=== PATIENT | male | born 1940 | race African-American/Black ===

== ENCOUNTER 2016-10-04 09:32 | Emergency (ER) ==
[2016-10-04 09:57] VITALS: BP 180/87
--- NOTE | 2016-10-04 11:00 | Diag Imaging Result Document ---
PROCEDURE NAME: HAND COMPLETE RIGHT - 10/04/2016 X-RAY RIGHT HAND 3 VIEWS, 10/04/2016: COMPARISON: None. FINDINGS: There is severe chronic deformity of the scaphoid with apparent erosion of the distal pole. This causes irregular orientation and widening of the scapholunate joint. There is also severe irregularity of the radiocarpal joint mostly at the border with the scaphoid. There is severe degeneration at the lunatocapitate joint. There is apparent volar, mild subluxation of the base of the 1st metacarpal on the trapezium. No fractures visible. IMPRESSION: 1. Questionable anterior subluxation of the 1st carpometacarpal joint. 2. Advanced degenerative changes of the wrist.
--- NOTE | 2016-10-04 11:13 | PROVIDER DOCUMENTATION ---
HPI-Musculoskeletal Pain/Inj - GENERAL Chief Complaint: Extremity Pain Stated Complaint: HAND PAIN Time Seen by Provider: 10/04/16 10:59 Source: patient - HX OF PRESENT ILLNESS-MUSKULOSKELTAL Nature of Presenting Problem: 76 y/o BM c/o R hand/wrist pain x 1 day. Pt states redness/swelling and pain 10 /10 to the area. States has had gout in the past. Denies any numbness/tingling , pain in elbow, injury to area. Is not taking anti-gout medication. Also states that he stopped taking his HTN medications. Review of Systems - Adult - REVIEW OF SYSTEMS - ADULT Constitutional: reports: no symptoms reported. denies: chills, fever Eyes: reports: no symptoms reported. denies: blurred vision, double vision Ears, Nose, Mouth & Throat: reports: no symptoms reported. denies: ear pain, nose pain Cardiovascular: reports: no symptoms reported. denies: chest pain, palpitations Respiratory: reports: no symptoms reported. denies: dyspnea on exertion, shortness of breath Gastrointestinal: reports: no symptoms reported. denies: abdominal pain, nausea , vomiting Genitourinary: reports: no symptoms reported. denies: dysuria, frequency Musculoskeletal: reports: see HPI, joint pain, joint swelling. denies: back pain, neck pain Integumentary: reports: no symptoms reported. denies: nail changes, rash Neurological: reports: no symptoms reported. denies: numbness, paresthesia Psychiatric: reports: no symptoms reported Endocrine: reports: no symptoms reported. denies: cold intolerance, heat intolerance Hematologic/Lymphatic: reports: no symptoms reported. denies: easy bruising, prolonged bleeding Allergic/Immunologic: reports: no symptoms reported All Other Systems: Reviewed and Negative Past History - Adult - PAST MEDICAL HISTORY-ADULT Review of Records: reports: Nursing Assessment Review, Medications Reviewed Major Childhood Illnesses: reports: denies history Cardiovascular: reports: denies history Respiratory: reports: denies history Gastrointestinal: reports: denies history Obstetrical/Gynecological: reports: denies history Genitourinary: reports: denies history Musculoskeletal: reports: denies history Neurological: reports: denies history Endocrine/Immune: reports: denies history Other Conditions: reports: denies history - FAMILY HISTORY Family History: reviewed, not pertinent - SOCIAL HISTORY Smoking: denies Physical Exam-Injury Related - Physical Exam-Injury Related Initial Vital Signs Reviewed: Yes General Appearance: alert, mild distress Eyes: pink conjunctivae Head, Ears, Nose, Mouth & Throat: normocephalic/atraumatic Neck: normal inspection Respiratory: no respiratory distress Cardiovascular: normal peripheral pulses, regular rate, rhythm Peripheral Pulses: radial (R): 2+, radial (L): 2+ Back Exam: normal inspection Extremity: normal gait, normal capillary refill. negative: normal range of motion (LROM at R wrist), abnormal NV exam Integumentary: normal color, warm/dry, blanching, warm, quiñonez red Neurologic: negative: aphasia Psych/Mental Status: normal mood/affect, normal thought content, normal thought process, oriented x 3 Progress - PLAN OF CARE/RESULTS Progress/Plan/Lab Results: Orders Category Date Time Status HAND COMPLETE RIGHT [RAD] Stat Exams 10/04/16 09:57 Draft Prednisone Med 10/04/16 11:19 Discontinued 60 mg PO NOW ONE Vital Signs Temp Pulse Resp BP Pulse Ox 10/04/16 09:53 98.8 F 72 16 180/87 99 No Known Allergies Allergy (Verified 10/04/16 11:15) Indomethacin 50 mg PO TID #15 capsule 10/04/16 Labetalol [Trandate] 100 mg PO DAILY #30 tablet 10/04/16 Discussed medication use and f/u with pt. Discussed tx options with Dr. Pagan; she agreed with tx plan. - XRAY 1 XRAY: Right XRAY Study: Hand Impression: See EMR Report (1. Questionable anterior subluxation of the 1st CMC joint. 2. Advanced degenerative changes of the wrist. -per Dr. Oh) Departure - Departure Time of Disposition Order: 11:17 DIAGNOSIS: Gout Qualifiers: Gout site: wrist Gout etiology: unspecified cause Laterality: right Chronicity : acute Qualified Code(s): M10.9 - Gout, unspecified Hypertension Qualifiers: Hypertension type: essential hypertension Qualified Code(s): I10 - Essential ( primary) hypertension Disposition: HOME 01 Certified Medical Emergency: Emergent Condition: Stable Additional Instructions: Take medications as directed. Follow up with PCP/specialist in 1-3 days for a recheck. ED Follow Up Instructions: You have been treated by a care provider in the Emergency Department. These instructions are being provided to you so you can have an understanding of how to care for yourself upon discharge. Upon discharge from the Emergency Department, you are responsible for making arrangements for follow-up care by a physician of your choice. Take all prescribed medications as directed. Return to the Emergency Department immediately for any new or worsening symptoms. You may call the Physician Referral phone number at [phone] to obtain a list of Physicians who are taking new patients. Prescriptions: Indomethacin 50 mg PO TID #15 capsule Hydrocodone/APAP 5 mg/325 mg [[place]-5] 1 each PO Q6H PRN PRN #14 tablet PRN Reason: Pain Labetalol [Trandate] 100 mg PO DAILY #30 tablet Referrals: Lake Burk MD [STAFF PHYSICIAN] - Attestation - Physician/ PATIENCE Attestation Patient care was provided by Advanced Practice Provider:: Yes Advanced Practice Provider:: Keri Miller Advanced Practice Provider documentation review:: The Mid-level provider documentation, treatment plan and medical decision making was reviewed by the physician who agrees with all treatment and medical decision making by the MLP.
[2016-10-04] MEDS ORDERED: PREDNISONE PO ONE (11:19)
== END 2016-10-04 11:54 | disposition home or self-care (01) ==
LOC: ED 09:32
DX: M10.9 Gout, unspecified (principal); I10 Essential (primary) hypertension; M79.641 Pain in right hand; M25.531 Pain in right wrist; L53.9 Erythematous condition, unspecified; M25.441 Effusion, right hand; M25.431 Effusion, right wrist
CPT/HCPCS: J7512

== ENCOUNTER 2017-02-11 20:09 | Inpatient (IN) ==
--- NOTE | 2017-02-11 21:08 | Diag Imaging Result Doc PS360 ---
EXAM: HEAD W/O CONTRAST HISTORY: stroke like sx TECHNIQUE: Dose reduction protocol COMPARISON: None. FINDINGS: No parenchymal hemorrhage. No epidural or subdural hematoma. No subarachnoid hemorrhage. No mass identified on this noncontrasted exam. No hydrocephalus. There is diffuse atrophy with chronic microvascular ischemic changes. No sinus opacification. IMPRESSION: 1.No hemorrhage 2.Atrophy with chronic microvascular ischemic changes. Electronically signed by Jorge Padilla 02/11/2017 9:06 PM
--- NOTE | 2017-02-11 21:15 | PROVIDER DOCUMENTATION ---
This chart was entered by Jenni Diehl Scribe, acting as scribe for Gordy Callejas MD. HPI-Neurological Disorder - General Chief Complaint: Stroke-Like Symptoms Stated Complaint: stroke Time Seen by Provider: 02/11/17 20:31 Source: family (daughter) Unable to obtain history due to:: other (pt nonverbal) Allergies/Adverse Reactions: Patient Allergies Allergy/AdvReac Type Severity Reaction Status Date / Time No Known Allergies Allergy Verified 02/11/17 20:15 Home Medications: Home Medication List Medication Instructions Recorded Confirmed Last Taken Type Hydrocodone/APAP 5 mg/325 mg 1 each PO Q6H PRN PRN #14 tablet 10/04/16 Unknown Rx [[place]-5] Labetalol [Trandate] 100 mg PO DAILY #30 tablet 10/04/16 Unknown Rx RX: Indomethacin 50 mg PO TID #15 capsule 10/04/16 Unknown Rx - History of Present Illness-Neuro Nature of Presenting Problem: Daughter states that she was called this afternoon and told her father was slurring his speech and not able to talk very well. Daughter states that she was told by pts neighbors that pt has been acting like this for 2 days. Daughter states that pt has not been taking his blood pressure medications. Severity: reports: moderate Onset/Duration: reports: 2 days ago Timing: reports: still present Character of Altered Mental Status: reports: N/A Any recent trauma/injury?: reports: none Character of Deficits: reports: impaired speech Cognitive Baseline: alert, oriented x3 Gait Baseline: walks without assistance Associated Symptoms: reports: slurred speech Similar Symptoms Previously?: No Recently seen or treated by another doctor?: No Review of Systems - Adult - REVIEW OF SYSTEMS - ADULT ROS:: limited per condition (nonverbal) Constitutional: reports: no symptoms reported Eyes: reports: no symptoms reported Ears, Nose, Mouth & Throat: reports: no symptoms reported Cardiovascular: reports: no symptoms reported Respiratory: reports: no symptoms reported Gastrointestinal: reports: no symptoms reported Genitourinary: reports: no symptoms reported Musculoskeletal: reports: no symptoms reported Integumentary: reports: no symptoms reported Neurological: reports: slurred speech, other (aphasia) Psychiatric: reports: no symptoms reported Endocrine: reports: no symptoms reported Hematologic/Lymphatic: reports: no symptoms reported Allergic/Immunologic: reports: no symptoms reported All Other Systems: Reviewed and Negative Past History - Adult - PAST MEDICAL HISTORY-ADULT Review of Records: reports: Nursing Assessment Review, Medications Reviewed Major Childhood Illnesses: reports: denies history Cardiovascular: reports: denies history Respiratory: reports: denies history Gastrointestinal: reports: denies history Obstetrical/Gynecological: reports: denies history Genitourinary: reports: denies history Musculoskeletal: reports: denies history Neurological: reports: denies history Endocrine/Immune: reports: denies history Other Conditions: reports: denies history - PRIOR SURGERIES/PROCEDURES Surgical/Procedure History: reports: none - IMMUNIZATION STATUS Childhood Immunizations: See Nurse Assessment Flu Vaccine: See Nurse Assessment - FAMILY HISTORY Family History: reviewed, not pertinent - SOCIAL HISTORY Smoking: non-smoker Substance Use: none/never Alcohol Use Frequency: 3-4 times a week Physical Exam- Neurological - Physical Exam-Neuro Initial Vital Signs Reviewed: Yes General Appearance: alert, no apparent distress Eye Exam: bilateral eye: normal inspection, PERRL, EOMI HENMT: moist mucous membranes Respiratory: chest non-tender, lungs clear, normal breath sounds Cardiovascular: normal peripheral pulses, regular rate, rhythm, 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 Exam: abnormal speech Neurologic: aphasia Integumentary: normal color, normal turgor, warm/dry Psych/Mental Status: oriented x 3 Progress - PLAN OF CARE/RESULTS Progress/Plan/Lab Results: Vital Signs - 8 hr 02/11/17 20:11 02/11/17 22:08 Temperature 98.4 F Pulse Rate 67 60 Respiratory Rate 19 18 Blood Pressure 196/085 179/078 O2 Sat by Pulse Oximetry 98 100 Laboratory Results - last 24 hr 02/11/17 02/11/17 02/11/17 20:45 20:45 20:45 WBC 6.01 RBC 3.92 L Hgb 12.3 L Hct 38.0 L MCV 96.9 MCH 31.4 H MCHC 32.4 L RDW Std Deviation 11.2 L Plt Count 178 MPV 11.0 H Immature Gran % (Auto) 0.2 Neut % (Auto) 45.4 Lymph % (Auto) 31.3 [place] % (Auto) 14.6 H Eos % (Auto) 8.0 Baso % (Auto) 0.5 Immature Gran # (Auto) 0.01 Neut # (Auto) 2.73 Lymph # (Auto) 1.88 [place] # (Auto) 0.88 H Eos # (Auto) 0.48 Baso # (Auto) 0.03 PT INR APTT (Factor Assay) Sodium 136 Potassium 3.4 L Chloride 102 Carbon Dioxide 24 L Anion Gap 11 BUN 11 Creatinine 1.0 Estimated GFR/1.73 m2 > 60 BUN/Creatinine Ratio 11 Glucose 81 Calculated Osmolality 270 Calcium 8.9 Total Bilirubin 0.70 AST 19 ALT 8 L Alkaline Phosphatase 53 Creatine Kinase 157 Troponin T < 0.010 Total Protein 7.4 Albumin 3.7 Globulin 4.0 Albumin/Globulin Ratio 1.0 Plasma Lactate Urine Opiates Screen Ur Oxycodone Screen Urine Methadone Screen Ur Barbituates Screen Ur Tricyclics Screen Ur Phencyclidine Scrn Ur Amphetamines Screen U Methamphetamines Scrn Urine MDMA Screen U Benzodiazepines Scrn Urine Cocaine Screen U Cannabinoids Screen Plasma/Serum Ethyl Alc 02/11/17 02/11/17 02/11/17 20:45 20:45 21:03 WBC RBC Hgb Hct MCV MCH MCHC RDW Std Deviation Plt Count MPV Immature Gran % (Auto) Neut % (Auto) Lymph % (Auto) [place] % (Auto) Eos % (Auto) Baso % (Auto) Immature Gran # (Auto) Neut # (Auto) Lymph # (Auto) [place] # (Auto) Eos # (Auto) Baso # (Auto) PT 14.1 INR 1.06 APTT (Factor Assay) 28.8 Sodium Potassium Chloride Carbon Dioxide Anion Gap BUN Creatinine Estimated GFR/1.73 m2 BUN/Creatinine Ratio Glucose Calculated Osmolality Calcium Total Bilirubin AST ALT Alkaline Phosphatase Creatine Kinase Troponin T Total Protein Albumin Globulin Albumin/Globulin Ratio Plasma Lactate 1.3 Urine Opiates Screen Ur Oxycodone Screen Urine Methadone Screen Ur Barbituates Screen Ur Tricyclics Screen Ur Phencyclidine Scrn Ur Amphetamines Screen U Methamphetamines Scrn Urine MDMA Screen U Benzodiazepines Scrn Urine Cocaine Screen U Cannabinoids Screen Plasma/Serum Ethyl Alc 02/11/17 22:20 WBC RBC Hgb Hct MCV MCH MCHC RDW Std Deviation Plt Count MPV Immature Gran % (Auto) Neut % (Auto) Lymph % (Auto) [place] % (Auto) Eos % (Auto) Baso % (Auto) Immature Gran # (Auto) Neut # (Auto) Lymph # (Auto) [place] # (Auto) Eos # (Auto) Baso # (Auto) PT INR APTT (Factor Assay) Sodium Potassium Chloride Carbon Dioxide Anion Gap BUN Creatinine Estimated GFR/1.73 m2 BUN/Creatinine Ratio Glucose Calculated Osmolality Calcium Total Bilirubin AST ALT Alkaline Phosphatase Creatine Kinase Troponin T Total Protein Albumin Globulin Albumin/Globulin Ratio Plasma Lactate Urine Opiates Screen NONE DETECTED Ur Oxycodone Screen NONE DETECTED Urine Methadone Screen NONE DETECTED Ur Barbituates Screen NONE DETECTED Ur Tricyclics Screen NONE DETECTED Ur Phencyclidine Scrn NONE DETECTED Ur Amphetamines Screen NONE DETECTED U Methamphetamines Scrn NONE DETECTED Urine MDMA Screen NONE DETECTED U Benzodiazepines Scrn NONE DETECTED Urine Cocaine Screen NONE DETECTED U Cannabinoids Screen NONE DETECTED Plasma/Serum Ethyl Alc Orders Category Date Time Status Admit - [facility] Routine AdmDCTranf 02/11/17 22:28 Ordered Activity - Strict Bedrest ORDERED Care 02/11/17 22:28 Active Cardiac Monitoring DIRECTED Care 02/11/17 20:18 Active Finger Stick Blood Sugar (ED) DIRECTED Care 02/11/17 20:18 Active Neurological Check Q4H Care 02/11/17 22:30 Active Oxygen Therapy- ED Nursing DIRECTED Care 02/11/17 20:18 Active Resuscitation Status Routine Care 02/11/17 22:28 Ordered Saline Loc NOW Care 02/11/17 20:18 Active Vital Signs Order Q 4-HR ASSESS Care 02/11/17 22:28 Active Clear Liquid Diet Diet 02/12/17 00:01 Active HEAD W/O CONTRAST [CT] Stat Exams 02/11/17 20:17 Completed BLOOD CULTURE [BLDCUL] Stat Lab 02/11/17 20:32 Ordered CBC WITH ELECTRONIC DIFF [HEME] Stat Lab 02/11/17 20:45 Completed CK PROFILE [SP CHEM] Stat Lab 02/11/17 20:45 Completed COMPREHENSIVE METABOLIC PANEL [CHEM] Stat Lab 02/11/17 20:45 Completed ETOH [ALCOHOL BLOOD] Stat Lab 02/11/17 20:45 Completed LACTATE, PLASMA [CHEM] Stat Lab 02/11/17 21:03 Completed [address]IME WITH INR PL [COAG] Stat Lab 02/11/17 20:[address] [COAG] Stat Lab 02/11/17 20:45 Completed TROPONIN T Stat Lab 02/11/17 20:[address] W/POSS RFLX CULT [URINALYSIS] Stat Lab 02/11/17 22:20 Received [address]INE DRUG SCREEN [address] Stat Lab 02/11/17 22:20 Completed 0.9% Sodium Chloride Inj [Ns] 1,000 ml Med 02/11/17 22:28 Active IV 100 mls/hr Pulse Oximetry Stat Oth 02/11/17 20:18 Active EKG [EKG] Stat Ther 02/11/17 20:17 Draft Transfer/Admit Order [TRANSFER] Routine Transfer 02/11/17 22:31 Ordered Result Diagrams: 02/11/17 20:45 02/11/17 20:45 - EKG 1 Time of EKG reading by physician:: 20:15 EKG Read and Signed by:: Gordy Callejas EKG Interpretation (*Must complete 3 of following elements*): Abnormal Rate: 71 Rhythm: NSR QRS: RBB Comments: septal infarct, age undetermined Departure - Departure Date of Disposition Decision: 02/11/17 Time of Disposition Decision: 22:33 DIAGNOSIS: Slurred speech Altered mental status Qualifiers: Altered mental status type: unspecified Qualified Code(s): R41.82 - Altered mental status, unspecified Disposition: ADMITTED INPATIENT 09 Certified Medical Emergency: Emergent Condition: Serious - Critical Care Note This patient required my direct & personal management of CC.: Yes This chart was documented by the indicated scribe, (Jenni Diehl Scribe) and accurately reflects the services I performed and decisions made by me, Gordy Callejas MD, as attested by the provider's signature.
[2017-02-11 21:37] LABS: MANUAL DIFF NEEDED? NO
--- NOTE | 2017-02-11 21:48 | EKG Report ---
Test Performed on : 02/11/2017 8:15:43 PM Test Reason : stroke Blood Pressure : / mmHG Vent. Rate : 071 BPM Atrial Rate : 071 BPM P-R Int : 168 ms QRS Dur : 130 ms QT Int : 466 ms P-R-T Axes : 061 069 055 degrees QTc Int : 506 ms Normal sinus rhythm. Right bundle branch block Septal infarct , age undetermined Abnormal ECG When compared with ECG of 11-AUG-2007 21:49, QRS axis shifted right Septal infarct is now present QT has lengthened Unconfirmed Result
[2017-02-11 22:04] LABS: AGAP 11; ALBUMIN 3.7 g/dL (3.5-5.0); ALKALINE PHOSPHATASE 53 U/L (32-122); BUN 11 mg/dL (8-22); CALCIUM 8.9 mg/dL (8.8-10.2); CHLORIDE 102 mmol/L (98-107); CK PROFILE 157 U/L (24-204); COSMO 270; GOT 19 U/L (10-34); GPT 8 U/L (10-44); POTASSIUM 3.4 mmol/L (3.5-5.1); SODIUM 136 mmol/L (136-145); TCO2 24 mmol/L (25-35); TOTAL PROTEIN 7.4 g/dL (6.3-8.3)
[2017-02-11 22:18] LABS: BASO% 0.5 % (0.0-0.8); EOS# 0.48 X1000 (0.0-0.7); HEMOGLOBIN 12.3 g/dL (14.0-18.0); IMM GRAN# 0.01 X1000 (0.0-0.04); IMM GRAN% 0.2 % (0.0-0.5); LYMPH# 1.88 X1000 (1.2-3.4); LYMPH% 31.3 % (20.5-51.1); MCH 31.4 PG (27-31); MCHC 32.4 g/dL (33-37); MCV 96.9 FL (81-99); MONO# 0.88 X1000 (0.11-0.59); MONO% 14.6 % (1.7-9.3); NEUT% 45.4 % (42.2-75.2); PLT 178 X1000 (130-400); RBC 3.92 XMIL (4.7-6.1)
[2017-02-11 22:19] LABS: INR 1.06 (0.86-1.15); PROTIME 14.1 Seconds (12.1-15.5)
[2017-02-11 22:20] LABS: PTT PL 28.8 Seconds (22.6-43.9)
[2017-02-11 22:21] LABS: URINE CULTURE PL NEEDED? NO
[2017-02-11] MEDS ORDERED: NS 1,000 ML IV ONE (22:28)
[2017-02-11 22:30] LABS: UR AMPHETAMINES QUAL NONE DETECTED (NONE DETECT); UR BARBITUATES QUAL NONE DETECTED (NONE DETECT); UR BENZODIAZEPIN QUAL NONE DETECTED (NONE DETECT); UR CANNABINOIDS QUAL NONE DETECTED (NONE DETECT); UR COCAINE QUAL NONE DETECTED (NONE DETECT); UR MDMA QUAL NONE DETECTED (NONE DETECT); UR METHADONE QUAL NONE DETECTED (NONE DETECT); UR METHAMPHETAMINE QUAL NONE DETECTED (NONE DETECT); UR OPIATES QUAL NONE DETECTED (NONE DETECT); UR OXYCODONE QUAL NONE DETECTED (NONE DETECT); UR PCP QUAL NONE DETECTED (NONE DETECT); UR TCA QUAL NONE DETECTED (NONE DETECT)
[2017-02-11 22:35] LABS: BILIRUBIN URINE NEGATIVE (NEGATIVE); BLOOD URINE NEGATIVE (NEGATIVE); CLARITY CLEAR (CLEAR); COLOR YELLOW; GLUCOSE URINE NEGATIVE (NEGATIVE); LEUKOCYTES URINE NEGATIVE (NEGATIVE); NITRITE URINE NEGATIVE (NEGATIVE); PROTEIN URINE 1+(30 mg/dL) mg/dL (NEGATIVE); UROBILINOGEN URINE 4+(12 mg/dL)
[2017-02-11 22:36] LABS: URINE SOURCE CLEAN CATCH
[2017-02-11 22:38] LABS: URINE CRYSTAL CA OXALATE PRESENT /HPF; URINE EPITHELIAL CELLS <10 /HPF (<10); URINE RBC <10 /HPF (<10); URINE WBC <10 /HPF (<10)
[2017-02-12] MEDS ORDERED: ZOFRAN IV PRN (10:53)
[2017-02-12] MEDS ORDERED: SODIUM CHLORIDE 0.9% INJ SCH (11:00)
[2017-02-12] MEDS ORDERED: PROTONIX IV SCH (11:00)
[2017-02-12] MEDS ORDERED: TYLENOL PO PRN (11:03)
[2017-02-12] MEDS: PRILOSEC PO SCH (12:18)
[2017-02-12] MEDS: ASPIRIN PO SCH (12:18)
[2017-02-12] MEDS: NS 1,000 ML IV SCH (15:07)
--- NOTE | 2017-02-12 15:51 | HISTORY AND PHYSICAL ---
CHIEF COMPLAINT: Slurred speech. Right-sided weakness. HISTORY OF PRESENT ILLNESS: This is a 77-year-old gentleman with a history of hypertension and gout. He presented to the emergency room with his daughter. The daughter stated that the patient has had right-sided weakness as well as garbled speech for 2 days prior. She does state that he is noncompliant with his hypertensive medications. CT of the head was performed in the emergency room which revealed no hemorrhage, atrophy with chronic microvascular ischemic changes. PAST MEDICAL HISTORY: Hypertension. Gout. PAST SURGICAL HISTORY: Denies. SOCIAL HISTORY: Denies tobacco or illicit drug use. He does have alcohol use. ALLERGIES: No known drug allergies. HOME MEDICATIONS: A list will be obtained. REVIEW OF SYSTEMS: A 14 point review of systems is discussed with the patient with pertinent positives being right-sided weakness, garbled, slurred speech. He denied chest pain, palpitations, dizziness, syncope, cough, fever, chills, nausea, vomiting, diarrhea, constipation, hematuria, dysuria, frequency, urgency. PHYSICAL EXAMINATION: GENERAL: This is a 77-year-old gentleman who is sitting up in the bed, in no distress. VITAL SIGNS: Blood pressure is 138/83 with a heart rate of 53, respirations 16. Temperature is 98.1 degrees with room air saturations of 95-100%. HEENT: Head is normocephalic, atraumatic. Pupils equal, round, react to light. EOMs are intact. Sclerae anicteric. Mucous membranes are moist. NECK: Supple. Trachea midline. CARDIOVASCULAR: Regular rate and rhythm. S1 and S2 appreciated. PULMONARY: Breath sounds are clear with no increased work of breathing noted. GASTROINTESTINAL: Soft, nontender, nondistended with bowel sounds in all 4 quadrants. MUSCULOSKELETAL: He has 5/5 strength in his left arm and left leg, 3/5 on his right arm with no director of premium seat sales to his right hand. Had 4 to 5/5 on his right lower extremity. EXTREMITIES: No clubbing, cyanosis, or edema. Calves nontender. Pulses are palpable x4. NEUROLOGIC: He is alert and oriented. Forehead is spared. He has no uvula nor tongue deviation. No facial droop noted. Shoulder shrug is equal. He does have a right plantar drift with potentially no director of premium seat sales with right hand. Finger to nose 5/5 on the left and 2/5 on the right. DIAGNOSTICS: WBC is 8.6 with hemoglobin 12.3, hematocrit 38 and platelets of 178,000. INR is 1.06. Sodium is 136, potassium 3.4, BUN 11, creatinine 1, with a glucose of 84. Urine drug screen is negative. Blood alcohol, none detected. CT of the head revealed no hemorrhage and no acute processes. ASSESSMENT AND PLAN: 1. Cerebrovascular accident with right upper extremity weakness and aphasia. We will consult physical therapy, occupational therapy and speech therapy , perform swallow study. Once this is cleared, then his diet will be advance as tolerated , neurologic checks, Lipitor and an aspirin. 3. Hypertension. We will allow permissive hypertension at present and start antihypertensives as needed. 4. Gout. As of right now, he denies any flare-ups. We will monitor. 5. Hypokalemia. We will supplement and trend labs. 6. For DVT prophylaxis, we will use Lovenox, for GI prophylaxis, Protonix. Dictated by CORINNA Damon for Ankit Hess MD cc: CORINNA Damon MD [facility]
[2017-02-12] MEDS: LIPITOR PO SCH (23:02)
[2017-02-13] MEDS: NS 1,000 ML IV SCH (05:12)
[2017-02-13] MEDS: PRILOSEC PO SCH (06:03)
--- NOTE | 2017-02-13 07:59 | PROGRESS NOTE ---
DATE: 02/13/2017 SUBJECTIVE: Patient without any new complaints. PHYSICAL EXAMINATION: Vital Signs: Reviewed. Temperature 97 degrees, pulse 75, respiratory rate 18, BP 156/65, saturation 100% on room air. General: Patient is awake, alert. He is in no respiratory distress. Neck: Supple. CV: Regular rate. Chest: Clear. Abdomen: Soft. Extremities: Moves all extremities. Neurologic: The patient's speech is actually a little bit easier to understand this morning. It is less garbled, although is still not back to his baseline. ASSESSMENT: 1. Acute cerebrovascular accident. We will check an MRI today. 2. Hypertension. Blood pressure is a little bit better controlled. We will start on Norvasc this morning. Continue to follow. 3. Gout, stable. 4. Hypokalemia. We will recheck. cc: Ankit Hess MD
[2017-02-13] MEDS: ASPIRIN PO SCH (08:01)
[2017-02-13] MEDS: NORVASC PO SCH (08:06)
[2017-02-13 08:40] LABS: HEMATOCRIT 36.6 % (42.0-52.0); MCH 31.7 PG (27-31); MCHC 32.8 g/dL (33-37); MCV 96.8 FL (81-99); MPV 10.8 FL (7.4-10.4); RBC 3.78 XMIL (4.7-6.1)
[2017-02-13 09:29] LABS: AGAP 8; ALBUMIN 3.4 g/dL (3.5-5.0); ALKALINE PHOSPHATASE 50 U/L (32-122); BUN 7 mg/dL (8-22); CALCIUM 8.5 mg/dL (8.8-10.2); CHLORIDE 104 mmol/L (98-107); COSMO 271; GOT 18 U/L (10-34); GPT 7 U/L (10-44); MAGNESIUM 1.5 mg/dL (1.5-2.7); POTASSIUM 3.4 mmol/L (3.5-5.1); SODIUM 137 mmol/L (136-145); TCO2 25 mmol/L (25-35); TOTAL PROTEIN 6.7 g/dL (6.3-8.3)
--- NOTE | 2017-02-13 11:17 | Diag Imaging Result Doc PS360 ---
EXAM: MRI BRAIN W/O CONTRAST HISTORY: CVA TECHNIQUE: Axial, sagittal, and coronal images obtained in multiple sequences COMPARISON: None. FINDINGS: There is a small recent infarct in the medial left parietal lobe. This is periventricular location and measures approximately 2 cm in greatest dimension. There are also prominent microvascular ischemic changes bilaterally in addition to atrophy. No hydrocephalus. No epidural or subdural fluid collection. No sinus opacification although there is mucosal thickening in the left maxillary sinus. IMPRESSION: Small recent left parietal infarct in addition to chronic microvascular ischemic changes and atrophy. A preliminary report was called to the floor. Electronically signed by Jorge Padilla 02/13/2017 11:15 AM
[2017-02-13] MEDS: LIPITOR PO SCH (20:37)
[2017-02-14] MEDS: PRILOSEC PO SCH (06:26)
[2017-02-14] MEDS: ASPIRIN PO SCH (08:41)
[2017-02-14] MEDS: NORVASC PO SCH (08:41)
[2017-02-14] MEDS: LIPITOR PO SCH (20:40)
[2017-02-15] MEDS: PRILOSEC PO SCH (06:09)
[2017-02-15 06:28] LABS: HEMATOCRIT 41.6 % (42.0-52.0); HEMOGLOBIN 13.6 g/dL (14.0-18.0); MCH 31.1 PG (27-31); MCHC 32.7 g/dL (33-37); MCV 95.2 FL (81-99); MPV 10.4 FL (7.4-10.4); RBC 4.37 XMIL (4.7-6.1)
[2017-02-15 06:45] LABS: AGAP 9; BUN 10 mg/dL (8-22); CALCIUM 9.3 mg/dL (8.8-10.2); CHLORIDE 98 mmol/L (98-107); COSMO 267; POTASSIUM 3.2 mmol/L (3.5-5.1); SODIUM 134 mmol/L (136-145); TCO2 27 mmol/L (25-35)
[2017-02-15] MEDS: ASPIRIN PO SCH (08:41)
[2017-02-15] MEDS: NORVASC PO SCH (08:41)
[2017-02-15] MEDS ORDERED: KLOR-CON PO ONE (11:06)
--- NOTE | 2017-02-15 18:16 | PROGRESS NOTE ---
DATE: 02/15/2017 SUBJECTIVE: The patient has no complaints. OBJECTIVE: Vital Signs: Stable. Blood pressure 143/65, heart rate 56, respiratory rate 19, temperature 95, 100% saturation on room air. Cardiovascular: Regular rate and rhythm. Pulmonary: Bilateral breath sounds. Clear to auscultation. GI: Soft, nontender, nondistended. Bowel sounds are positive. Neuro: Exam unremarkable. LABS: CBC: Hemoglobin and hematocrit 13 and 43. Normal white count. Normal platelets. Potassium 3.2. PROBLEM LIST: 1. Acute ischemic stroke. Clinically he is improved. Continue aspirin, statin and follow. 2. Hypertension. Appears to be overall well controlled. 3. Gout, is stable. 4. Hypokalemia, supplement will follow. DISPOSITION: Plan for rehab tomorrow if stable. cc: Dustin Lema MD
[2017-02-15] MEDS: LIPITOR PO SCH (22:10)
[2017-02-16] MEDS: PRILOSEC PO SCH (06:10)
[2017-02-16 06:46] LABS: AGAP 8; BUN 12 mg/dL (8-22); CALCIUM 9.2 mg/dL (8.8-10.2); CHLORIDE 101 mmol/L (98-107); COSMO 271; POTASSIUM 3.9 mmol/L (3.5-5.1); SODIUM 136 mmol/L (136-145); TCO2 27 mmol/L (25-35)
[2017-02-16] MEDS: NORVASC PO SCH (08:48)
[2017-02-16] MEDS: ASPIRIN PO SCH (08:48)
[2017-02-16 11:31] VITALS: BP 140/68
--- NOTE | 2017-02-16 11:54 | DISCHARGE SUMMARY ---
ADMISSION DATE: 02/13/2017 DISCHARGE DATE: DISCHARGE DIAGNOSIS: 1. Acute ischemic stroke in a left parietal distribution. 2. Hypertension. 3. Gout. CONSULTATIONS: None. Briefly this is a 77-year-old, male, coming in with elevated blood pressure and acute right-sided weakness and dysphagia. He has not been very compliant with his medication. Head CT on admission was negative. Again he was felt clinically to have a stroke. MRI was performed the following day and showed a left parietal stroke. He slowly clinically improved and plans were made for transfer to rehab on the . Blood pressure 152/73, on the day of discharge, heart rate 57, respiratory rate 97.7. Weakness had essentially resolved but he had persistent dysarthria. DISCHARGE CONDITION: Stable. DISCHARGE MEDICATIONS: Norvasc 5, aspirin 81 daily, Lipitor 20 daily and labetalol 100 daily. I think were going to hold the labetalol because he has been on the bradycardic side and he has not been getting it while he has been here. He is being sent to [facility] for rehab. 35 minute discharge. cc: Dustin Lema MD
--- NOTE | 2017-02-16 11:56 | Diag Imaging Result Doc PS360 ---
EXAM: CHEST-PORTABLE HISTORY: nh placement TECHNIQUE: Erect AP portable at 1134 COMMENT: There is questionable atelectasis in the left costophrenic angle. Otherwise lungs are clear and the heart and primary vascularity are within normal limits. There are calcified right paratracheal nodes. IMPRESSION: No evidence of acute disease. Electronically signed by Sergio May 02/16/2017 11:54 AM
== END 2017-02-16 17:09 ==
LOC: P.MEDSURG 20:09 → P.ED 20:09 → SUATTDRO 02-13 08:58
PROVIDERS: ATTEND Internal Medicine